=== PATIENT | male | born 1960 | race Caucasian/White ===

== ENCOUNTER 2019-10-27 19:16 | Emergency (ER) | payer BC, OTHER ==
[2019-10-27] MEDS ORDERED: Sodium Chloride 0.9% 2.5 ML Syringe FLUSH PRN (19:51)
[2019-10-27] MEDS ORDERED: Sodium Chloride 0.9% 1,000 ML IV ONE ×2 (19:51→21:02)
[2019-10-27] MEDS ORDERED: Sodium Chloride 0.9% 10 ML Syringe FLUSH PRN (19:51)
[2019-10-27] MEDS ORDERED: Ketorolac 15 MG/ML SDV IVPUSH ONE (19:51)
[2019-10-27 20:15] LABS: CARBON DIOXIDE,CO2 26.5 mmol/L (21.0-32.0)
--- NOTE | 2019-10-27 20:24 | EDM.PDOC ---
ED HPI GENERAL MEDICAL PROBLEM - General Chief Complaint: Genitourinary Problem Stated Complaint: POSSIBLE KIDNEY STONE Time Seen by Provider: 10/27/19 19:29 - History of Present Illness INITIAL COMMENTS - FREE TEXT/NARRATIVE: History of present illness: 51-year-old male presenting with left flank pain since 8:30 AM Friday, 2 days ago. At that time he started to have left flank pain and nausea and vomited 3 times. Since then he has had a decreased appetite. Pain is located primarily in the high left flank, CVA area. He reports very similar character to prior renal stones he had in the past. He suspected it was kidney stone and therefore has been drinking lots of fluid since the onset of the pain, however he reports that increased fluid intake has continued to worsen the pain. He has not had a bowel movement in the last 2 days. Review of systems: As per history of present illness and below otherwise all systems reviewed and negative. Past medical history: As per history of present illness and as reviewed below otherwise noncontributory. Renal stones Surgical history: As per history of present illness and as reviewed below otherwise noncontributory. Social history: No reported history of drug or alcohol abuse. Family history: As per history of present illness and as reviewed below otherwise noncontributory. Physical exam: GEN: no acute distress, well appearing HEENT: Atraumatic, normocephalic, mucous membranes moist, Neck: supple Lungs: No respiratory distress. Heart: RRR Abdomen: Soft, nondistended, very mild left lower quadrant tenderness, no rebound or guarding, remainder of quadrants are nontender. Back: Mild high left CVA tenderness Extremities: Atraumatic. Neurovascularly intact. Neuro: Awake, alert, oriented. Neuro Exam nonfocal. Skin: warm, dry, no lesions Diagnostics: Labs, CT scan, UA Therapeutics: Toradol, IV fluids MDM: Impression: [] Plan: [] Definitive disposition and diagnosis as appropriate pending reevaluation and review of above. left flank Pain Score (Numeric/FACES): 6 - Related Data Allergies Allergy/AdvReac Type Severity Reaction Status Date / Time No Known Allergies Allergy Verified 10/27/19 19:37 Home Meds: Home Meds . [No Known Home Meds] 10/27/19 [History] Past Medical History - Past Health History Medical/Surgical History: Denies Medical/Surgical History - Past Surgical History Other Male Surgeries/Procedures: kidney stones Social & Family History - Tobacco Use Smoking Status *Q: Never Smoker - Recreational Drug Use Recreational Drug Use: No ED ROS GENERAL - Review of Systems Review Of Systems: See Below (See HPI) ED EXAM, GI/ABD - Physical Exam Exam: See Below (See HPI) Course - Vital Signs Text/Narrative:: Left flank pain. Prior history of kidney stones with similar pain. Labs today show elevated creatinine, 2.3 and prior value was 1.3. CT scan shows 3.4 mm stone at the distal ureter close to the UVJ with mild hydronephrosis. Also with gallstones, however the patient has no right-sided abdominal pain or tenderness on examination. Admit. Last Recorded V/S: Last Vital Signs Temp 98.5 F 10/27/19 19:35 Pulse 76 10/27/19 21:02 Resp 14 10/27/19 21:02 BP 126/57 L 10/27/19 21:02 Pulse Ox 96 10/27/19 21:02 - Orders/Labs/Meds Orders: Active Orders 24 hr Category Date Time Status CORONAVIRUS COVID-19 RAPID [MOLEC] Stat Lab 10/27/19 21:33 Received Sodium Chloride 0.9% [Saline Flush] Med 10/27/19 19:51 Active 10 ml FLUSH ASDIRECTED PRN Sodium Chloride 0.9% [Saline Flush] Med 10/27/19 19:51 Active 2.5 ml FLUSH ASDIRECTED PRN Saline Lock Insert [OM.PC] Stat Oth 10/27/19 19:51 Ordered Saline Lock Insert [OM.PC] Stat Oth 10/27/19 19:51 Ordered Medication Orders Sodium Chloride (Saline Flush) 10 ml FLUSH ASDIRECTED PRN PRN Reason: Keep Vein Open Sodium Chloride (Saline Flush) 2.5 ml FLUSH ASDIRECTED PRN PRN Reason: Keep Vein Open Labs: Laboratory Tests 10/27/19 10/27/19 10/27/19 Range/Units 19:45 19:45 19:45 WBC 11.30 H (4.0-11.0) K/uL RBC 5.16 (4.50-5.90) M/uL Hgb 15.6 (13.0-17.0) g/dL Hct 46.2 (38.0-50.0) % MCV 89.5 (80.0-98.0) fL MCH 30.2 (27.0-32.0) pg MCHC 33.8 (31.0-37.0) g/dL RDW Std Deviation 40.1 (28.0-62.0) fl RDW Coeff of Jayson 12 (11.0-15.0) % Plt Count 213 (150-400) K/uL MPV 10.00 (7.40-12.00) fL Neut % (Auto) 80.2 H (48.0-80.0) % Lymph % (Auto) 8.0 L (16.0-40.0) % Dare % (Auto) 11.6 (0.0-15.0) % Eos % (Auto) 0.1 (0.0-7.0) % Baso % (Auto) 0.1 (0.0-1.5) % Neut # (Auto) 9.1 H (1.4-5.7) K/uL Lymph # (Auto) 0.9 (0.6-2.4) K/uL Dare # (Auto) 1.3 H (0.0-0.8) K/uL Eos # (Auto) 0.0 (0.0-0.7) K/uL Baso # (Auto) 0.0 (0.0-0.1) K/uL Nucleated RBC % 0.0 /100WBC Nucleated RBCs # 0 K/uL Sodium 138 (136-148) mmol/L Potassium 4.0 (3.5-5.1) mmol/L Chloride 99 (98-107) mmol/L Carbon Dioxide 26.5 (21.0-32.0) mmol/L BUN 31 H (7.0-18.0) mg/dL Creatinine 2.3 H (0.8-1.3) mg/dL Est Cr Clr Drug Dosing 33.87 mL/min Estimated GFR (MDRD) 29.4 ml/min Glucose 165 H (74-106) mg/dL Calcium 9.8 (8.5-10.1) mg/dL Total Bilirubin 2.4 H (0.2-1.0) mg/dL AST 26 (15-37) IU/L ALT 39 (14-63) IU/L Alkaline Phosphatase 82 (46-116) U/L Total Protein 8.3 H (6.4-8.2) g/dL Albumin 4.5 (3.4-5.0) g/dL Globulin 3.8 (2.6-4.0) g/dL Albumin/Globulin Ratio 1.2 (0.9-1.6) Urine Color YELLOW Urine Appearance CLEAR Urine pH 6.0 (5.0-8.0) Ur Specific [place] >= 1.030 (1.001-1.035) Urine Protein 30 H (NEGATIVE) mg/dL Urine Glucose (UA) NEGATIVE (NEGATIVE) mg/dL Urine Ketones 15 H (NEGATIVE) mg/dL Urine Occult Blood NEGATIVE (NEGATIVE) Urine Nitrite NEGATIVE (NEGATIVE) Urine Bilirubin SMALL H (NEGATIVE) Urine Ictotest NEGATIVE Urine Urobilinogen 1.0 (<2.0) EU/dL Ur Leukocyte Esterase NEGATIVE (NEGATIVE) Urine RBC 0-1 (0-2/HPF) Urine WBC 0-1 (0-5/HPF) Ur Epithelial Cells RARE (NONE-FEW) Urine Bacteria RARE (NEGATIVE) Meds: Medications Generic Name Dose Route Start Last Admin Trade Name Freq PRN Reason Stop Dose Admin Sodium Chloride 10 ml 10/27/19 19:51 Saline Flush FLUSH ASDIRECTED PRN Keep Vein Open Sodium Chloride 2.5 ml 10/27/19 19:51 Saline Flush FLUSH ASDIRECTED PRN Keep Vein Open Discontinued Medications Generic Name Dose Route Start Last Admin Trade Name Feliberto PRN Reason Stop Dose Admin Sodium Chloride 1,000 mls @ 999 mls/hr 10/27/19 19:51 10/27/19 20:20 Normal Saline IV 10/27/19 20:51 999 mls/hr .Bolus ONE Administration Sodium Chloride 1,000 mls @ 999 mls/hr 10/27/19 21:02 10/27/19 21:10 Normal Saline IV 10/27/19 22:02 999 mls/hr .Bolus ONE Administration Ketorolac Tromethamine 30 mg 10/27/19 19:51 10/27/19 20:21 Toradol IVPUSH 10/27/19 19:52 30 mg ONETIME ONE Administration Tamsulosin HCl 0.4 mg 10/27/19 21:04 10/27/19 21:10 Flomax PO 10/27/19 21:05 0.4 mg ONETIME ONE Administration - Re-Assessments/Exams Free Text/Narrative Re-Assessment/Exam: 10/27/19 20:56 Reassessed the patient. He is resting comfortably and in no acute distress. He reports that his pain is improved. I discussed CT scan findings of renal stone at the UVJ and slightly elevated creatinine and recommendation for admission. Patient agrees 10/27/19 20:[address] Swenson, for possible admission who request to discuss with urology. 10/27/19 21:[address] Márquez, urologist. We discussed the patient's lab and CT scan findings, and in particular the elevated creatinine. He recommends to allow the patient to go home tonight and he will see him tomorrow in day surgery for a morning at 9 AM and will recheck his creatinine at that time. 10/27/19 21:[address] Márquez's recommendations with the patient, the patient is very comfortable with the idea of going home and would prefer to be discharged. Will give second liter of IV fluids and Flomax here. The patient's pain is currently 0 out of 10. Departure - Departure Time of Disposition: 22:12 Disposition: Home, Self-Care 01 Clinical Impression: Left ureteral stone - Discharge Information Instructions: Kidney Stones, [id number], Ureteroscopy Referrals: PCP,None [Primary Care Provider] - Ryan Márquez MD [Physician] - (Dr Márquez would like for you to come to DAY SURGERY tomorrow at 9am, with an empty stomach from midnight tonight. Please be on time. He will recheck your creatinine at that time and determine plan of care for your kidney stone.) Forms: ED Department Discharge Additional Instructions: You may take ibuprofen as needed every 8 hours for your pain. Please be sure to drink plenty of fluids. As we discussed, Dr. Márquez is planning to evaluate you tomorrow and possibly do ureteroscopy and stone removal. Please present to day surgery at 9 AM. Please be sure to not eat or drink anything after midnight tonight. Return to the ER if any worsening symptoms or if pain not well controlled, or if you develop a fever. The following information is given to patients seen in the emergency department who are being discharged to home. This information is to outline your options for follow-up care. We provide all patients seen in our emergency department with a follow-up referral. The need for follow-up, as well as the timing and circumstances, are variable depending upon the specifics of your emergency department visit. If you don't have a primary care physician on staff, we will provide you with a referral. We always advise you to contact your personal physician following an emergency department visit to inform them of the circumstance of the visit and for follow-up with them and/or the need for any referrals to a consulting specialist. The emergency department will also refer you to a specialist when appropriate. This referral assures that you have the opportunity for follow-up care with a specialist. All of these measure are taken in an effort to provide you with optimal care, which includes your follow-up. Under all circumstances we always encourage you to contact your private physician who remains a resource for coordinating your care. When calling for follow-up care, please make the office aware that this follow-up is from your re cent emergency room visit. If for any reason you are refused follow-up, please contact the [facility] Emergency Department at and asked to speak to the emergency department charge nurse. Sepsis Event Note (ED) - Evaluation Sepsis Screening Result: No Definite Risk - Focused Exam Vital Signs: Vital Signs Temp Pulse Resp BP Pulse Ox 10/27/19 21:02 76 14 126/57 L 96 10/27/19 19:35 98.5 F 91 17 148/86 H 96 - My Orders Last 24 Hours: My Active Orders 10/27/19 19:51 Sodium Chloride 0.9% [Saline Flush] 10 ml FLUSH ASDIRECTED PRN Sodium Chloride 0.9% [Saline Flush] 2.5 ml FLUSH ASDIRECTED PRN Saline Lock Insert [OM.PC] Stat Saline Lock Insert [OM.PC] Stat 10/27/19 21:33 CORONAVIRUS COVID-19 RAPID [MOLEC] Stat - Assessment/Plan Last 24 Hours: My Active Orders 10/27/19 19:51 Sodium Chloride 0.9% [Saline Flush] 10 ml FLUSH ASDIRECTED PRN Sodium Chloride 0.9% [Saline Flush] 2.5 ml FLUSH ASDIRECTED PRN Saline Lock Insert [OM.PC] Stat Saline Lock Insert [OM.PC] Stat 10/27/19 21:33 CORONAVIRUS COVID-19 RAPID [MOLEC] Stat
--- NOTE | 2019-10-27 20:29 | CT ---
CT abdomen and pelvis Technique: Multiple axial sections were obtained from above the dome of the diaphragm inferiorly through the pubic symphysis. Intravenous and oral contrast not utilized. Study has been performed as a ureteral stone protocol. Findings: Left ureter is mildly prominent down to the UVJ. Small obstructing stone is noted within the distal left ureter near the UVJ measuring approximately 3.4 mm. No other abnormal calcifications are seen within the ureters or within the kidneys. Other findings: Visualized lung bases show nothing acute. Liver contains no focal abnormality. Multiple large calcified gallstones are seen within the gallbladder. Spleen appears within normal limits. Adrenal glands show no nodule. Pancreas shows no abnormality. Aorta shows no aneurysm with atherosclerotic calcification being seen. No retroperitoneal adenopathy or mesenteric abnormalities are seen. Appendix is seen which is normal. No pelvic mass or adenopathy is seen. Small fat-containing left inguinal hernia is noted. No free fluid or inflammatory change is appreciated. Impression: 1. 3.4 mm obstructing stone within the distal left ureter located near the UVJ. 2. Other incidental finding as noted above. Diagnostic code #3 This report was dictated in MDT
[2019-10-27] MEDS ORDERED: Tamsulosin 0.4 MG Cap.ER PO ONE (21:04)
== END 2019-10-27 22:31 | disposition home or self-care (01) ==
LOC: MW.ED 19:16
DX: N20.1 Calculus of ureter (principal); Z20.828 Contact with and (suspected) exposure to other viral communicable diseases
CPT/HCPCS: 36415; 74176; 80053; 81001; 85025; 87635; 96361; 96374; 99284; A9270; J1885; J7030; U0002

== ENCOUNTER 2019-10-28 09:38 | Day surgery (SDC) | payer BC ==
[~2019-10-28 09:38] MED LIST: Lactated Ringers 1,000 ML IV SCH
--- NOTE | 2019-10-28 10:09 | PCM.PREANE ---
Preanesthetic Assessment - Anesthesia/Transfusion/Family Hx Anesthesia History: No Prior Anesthesia Family History of Anesthesia Reaction: No Transfusion History: No Prior Transfusion(s) - Review of Systems General: No Symptoms Pulmonary: No Symptoms Cardiovascular: No Symptoms Gastrointestinal: No Symptoms Neurological: No Symptoms Other: Reports: None - Physical Assessment NPO Status Date: 10/27/19 Height: 5 ft 10 in Weight: 77.111 kg ASA Class: 2 Mental Status: Alert & Oriented x3 Airway Class: Mallampati = 2 Dentition: Reports: Normal Dentition ROM/Head Extension: Full Lungs: Clear to Auscultation, Normal Respiratory Effort Cardiovascular: Regular Rate, Regular Rhythm - Allergies Allergies/Adverse Reactions: Allergies Allergy/AdvReac Type Severity Reaction Status Date / Time No Known Allergies Allergy Verified 10/28/19 08:04 - Blood Blood Available: No - Anesthesia Plan Pre-Op Medication Ordered: None - Acknowledgements Anesthesia Type Planned: General Anesthesia Pt an Appropriate Candidate for the Planned Anesthesia: Yes Alternatives and Risks of Anesthesia Discussed w Pt/Guardian: Yes Pt/Guardian Understands and Agrees with Anesthesia Plan: Yes Additional Comments: PMH: elevated creatanine prob secondary to ureteral obstruction, cr=2.3 PLAN: ga/lma PreAnesthesia Questionnaire - Past Health History Medical/Surgical History: Denies Medical/Surgical History HEENT History: Reports: Other (See Below) Other HEENT History: reading glasses Genitourinary History: Reports: Renal Calculus Endocrine/Metabolic History: Reports: Other (See Below) Other Endocrine/Metabolic History: "glucose was elevated in the ER last night" "165" - Past Surgical History Head Surgeries/Procedures: Reports: None Other Male Surgeries/Procedures: kidney stones - SUBSTANCE USE Smoking Status *Q: Never Smoker - HOME MEDS Home Medications: Home Meds Aspirin 1 - 2 tab PO ASDIRECTED PRN 10/28/19 [History] - CURRENT (IN HOUSE) MEDS Current Meds: Current Medications Lactated Ringer's (Ringers, Lactated) 1,000 mls @ 100 mls/hr IV ASDIRECTED [facility]
[2019-10-28] MEDS ORDERED: Dexamethasone 4 MG/ML 5 ML MDV ONE (10:21)
[2019-10-28] MEDS ORDERED: Propofol 200 MG/20 ML SDV ONE (10:21)
[2019-10-28] MEDS ORDERED: Lidocaine 2% 100 MG/5 ML Syringe ONE (10:21)
[2019-10-28] MEDS ORDERED: Midazolam 1 MG/ML 2 ML SDV ONE (10:21)
[2019-10-28] MEDS ORDERED: Ondansetron 4 MG/2 ML SDV ONE (10:21)
[2019-10-28] MEDS ORDERED: fentaNYL 100 MCG/2 ML SDV IVPUSH PRN (10:25)
[2019-10-28] MEDS ORDERED: Iopamidol 200-M 10 ML vial ITHECAL ONE (10:54)
[2019-10-28] MEDS ORDERED: Ketorolac 30 MG/ML SDV ONE (11:41)
--- NOTE | 2019-10-28 12:55 | PCM48HPAN ---
Post Anesthesia Note - EVALUATION WITHIN 48HRS OF ANESTHETIC Vital Signs in Normal Range: Yes Patient Participated in Evaluation: Yes Respiratory Function Stable: Yes Airway Patent: Yes Cardiovascular Function Stable: Yes Hydration Status Stable: Yes Pain Control Satisfactory: Yes (Some soreness) Nausea and Vomiting Control Satisfactory: Yes Mental Status Recovered: Yes Vital Signs: Last Vital Signs Temp 34.4 C L 10/28/19 12:21 Pulse 59 L 10/28/19 12:44 Resp 14 10/28/19 12:44 BP 135/75 10/28/19 12:44 Pulse Ox 100 10/28/19 12:44 - COMMENTS/OBSERVATIONS Free Text/Narrative:: Ready for discharge.
--- NOTE | 2019-10-28 12:55 | PCM.POSTAN ---
POST ANESTHESIA ASSESSMENT - MENTAL STATUS Mental Status: Alert - VITAL SIGNS Vital Signs: Last Vital Signs Temp 34.4 C L 10/28/19 12:21 Pulse 59 L 10/28/19 12:44 Resp 14 10/28/19 12:44 BP 135/75 10/28/19 12:44 Pulse Ox 100 10/28/19 12:44 - RESPIRATORY Respiratory Status: Respiratory Rate WNL - CARDIOVASCULAR CV Status: Pulse Rate WNL - GASTROINTESTINAL GI Status: No Symptoms - POST OP HYDRATION Hydration Status: Adequate & Stable - OBSERVATIONS Free Text/Narrative:: Doing well
--- NOTE | 2019-10-28 13:40 | OR ---
SURGEON: Ryan Márquez M.D. DATE OF PROCEDURE: 10/28/2019 PREOPERATIVE DIAGNOSIS: Left lower ureteral stone with obstruction and renal failure. POSTOPERATIVE DIAGNOSIS: Left lower ureteral stone with obstruction and renal failure. OPERATION: Cystoscopy, left ureteroscopy, and stone removal. DESCRIPTION OF PROCEDURE: The patient was given general anesthesia. He was in dorsal lithotomy position, prepped and draped in sterile drapes. Cystourethroscopy was done. No significant prostatic enlargement or obstruction. The inside of the bladder was normal. A Glidewire was advanced in the left ureter alongside the stone all the way up into the renal pelvis. Lower ureter was then dilated using the UroMax II balloon dilator to approximately 15-[place]. The rigid ureteroscope was then advanced in the left lower ureter and the stone was removed. Inspection of the ureter all the way beyond the mid ureter showed no additional stones. With that done, the procedure was terminated, and the patient was moved to recovery room after the Glidewire was removed and after the bladder was emptied. KIKE / NITISH /[id number]
--- NOTE | 2019-10-28 14:02 | CONS ---
DATE OF CONSULTATION: 10/28/2019 DATE OF : 1960 PRIMARY CARE PHYSICIAN: None PCP HISTORY OF PRESENT ILLNESS: A 59-year-old. He presented to emergency room yesterday with sudden onset of left flank pain. Apparently, he has had that for about 2 days prior to presentation. His UA showed microscopic hematuria. No pyuria. His creatinine was 2.3. He had a CT scan that showed 3.5 mm left lower ureteral stone. MEDICAL HISTORY: He had history of urinary stones in the past. His kidneys are now clean. He usually passed the stones on his own. SURGICAL HISTORY: Negative. MEDICATIONS: Takes no cardiac medications. No history of cardiac problems. DIAGNOSTIC STUDIES: I reviewed his CT scan. He does have a 3 mm left ureteral stone with mild to moderate hydronephrosis and hydroureter. PHYSICAL EXAMINATION: GENERAL: He is alert, he is oriented. HEART: Normal sinus rhythm. LUNGS: Clear. ABDOMEN: Negative. No abdominal masses. Mild tenderness over the left side. No hernias. GENITOURINARY: External genitalia normal. PLAN: Left ureteroscopy, stone removal. KIKE / NITISH /[id number]
--- NOTE | 2019-10-28 16:06 | CR ---
Abdomen: 5 fluoroscopic spot views were obtained centered to the left abdomen. Study shows left ureteral guidewire in place. Ureteroscope is also present. Fluoroscopy time is given a 6.6 seconds. Impression: 1. Procedural study as noted above.
== END 2019-10-28 12:57 | disposition home or self-care (01) ==
LOC: MW.SDS 09:38
PROVIDERS: ATTEND Urology
DX: N20.1 Calculus of ureter (principal); N19 Unspecified kidney failure; Z87.442 Personal history of urinary calculi
CPT/HCPCS: 52352; 76000; C1769; J0690; J1100; J1885; J2001; J2250; J2405; J2704; J7120; Q9966; 88300

== ENCOUNTER 2021-01-09 07:53 | Emergency (ER) | payer BC ==
[2021-01-09] MEDS ORDERED: Ketorolac 30 MG/ML SDV IVPUSH ONE (08:53)
[2021-01-09] MEDS ORDERED: Famotidine 20 MG/2 ML SDV IVPUSH ONE (08:53)
--- NOTE | 2021-01-09 08:56 | EDM.PDOC ---
ED HPI GENERAL MEDICAL PROBLEM - General Chief Complaint: Abdominal Pain Stated Complaint: ABDOMINAL PAIN Time Seen by Provider: 01/09/21 08:42 Source of Information: Reports: Patient History Limitations: Reports: No Limitations - History of Present Illness INITIAL COMMENTS - FREE TEXT/NARRATIVE: Patient is a 60-year-old male who presents today for due to diffuse abdominal pain. Patient says his pain a couple times a year on average about every 60 days he said he keeps a journal of it. He does not notice anything makes it come. Says the pain is diffuse in nature does not radiate not made better or worse with any events he still able to tolerate p.o. has no nausea vomiting or diarrhea. Says he had this pain before and was a kidney stone but otherwise they have not been able to locate the pain. Patient he does drink alcohol only on occasions. Middle Abdomen Pain Score (Numeric/FACES): 7 - Related Data Allergies Allergy/AdvReac Type Severity Reaction Status Date / Time No Known Allergies Allergy Verified 01/09/21 08:38 Past Medical History - Past Health History Medical/Surgical History: Denies Medical/Surgical History HEENT History: Reports: Other (See Below) Other HEENT History: reading glasses Genitourinary History: Reports: Renal Calculus Endocrine/Metabolic History: Reports: Other (See Below) Other Endocrine/Metabolic History: "glucose was elevated in the ER last night" "165" - Past Surgical History Head Surgeries/Procedures: Reports: None Other Male Surgeries/Procedures: kidney stones Social & Family History - Family History Family Medical History: No Pertinent Family History - Tobacco Use Tobacco Use Status *Q: Never Tobacco User - Recreational Drug Use Recreational Drug Use: No ED ROS GENERAL - Review of Systems Review Of Systems: See Below Constitutional: Reports: No Symptoms HEENT: Reports: No Symptoms Respiratory: Reports: No Symptoms Cardiovascular: Reports: No Symptoms Endocrine: Reports: No Symptoms GI/Abdominal: Reports: Abdominal Pain : Reports: No Symptoms Musculoskeletal: Reports: No Symptoms Skin: Reports: No Symptoms Neurological: Reports: No Symptoms Psychiatric: Reports: No Symptoms Hematologic/Lymphatic: Reports: No Symptoms Immunologic: Reports: No Symptoms ED EXAM, GI/ABD - Physical Exam Exam: See Below Exam Limited By: No Limitations General Appearance: Alert, WD/WN, No Apparent Distress Eyes: Bilateral: EOMI Neck: Normal Inspection, Supple, Non-Tender Respiratory/Chest: No Respiratory Distress, Lungs Clear, Normal Breath Sounds Cardiovascular: Normal Peripheral Pulses, Regular Rate, Rhythm, No Edema GI/Abdominal Exam: Normal Bowel Sounds, Soft, Non-Tender Extremities: Normal Inspection, Normal Range of Motion Neurological: Alert, Oriented, CN II-XII Intact, Normal Cognition, Normal Gait #1 Interpretation EKG Date: 01/09/21 Time: 09:00 Rhythm: Other (sinus renard) Rate (Beats/Min): 49 ST-T: Normal Course - Vital Signs Last Recorded V/S: Last Vital Signs Temp 97.5 F 01/09/21 08:38 Pulse 63 01/09/21 13:06 Resp 16 01/09/21 08:38 BP 133/65 01/09/21 13:06 Pulse Ox 98 01/09/21 13:06 - Orders/Labs/Meds Labs: Laboratory Tests 01/09/21 01/09/21 01/09/21 Range/Units 08:43 08:43 10:25 WBC 8.59 (4.0-11.0) K/uL RBC 4.75 (4.50-5.90) M/uL Hgb 14.4 (13.0-17.0) g/dL Hct 41.5 (38.0-50.0) % MCV 87.4 (80.0-98.0) fL MCH 30.3 (27.0-32.0) pg MCHC 34.7 (31.0-37.0) g/dL RDW Std Deviation 38.8 (28.0-62.0) fl RDW Coeff of Jayson 12 (11.0-15.0) % Plt Count 218 (150-400) K/uL MPV 10.20 (7.40-12.00) fL Neut % (Auto) 87.5 H (48.0-80.0) % Lymph % (Auto) 6.6 L (16.0-40.0) % Mercer % (Auto) 5.8 (0.0-15.0) % Eos % (Auto) 0.0 (0.0-7.0) % Baso % (Auto) 0.1 (0.0-1.5) % Neut # (Auto) 7.5 H (1.4-5.7) K/uL Lymph # (Auto) 0.6 (0.6-2.4) K/uL Mercer # (Auto) 0.5 (0.0-0.8) K/uL Eos # (Auto) 0.0 (0.0-0.7) K/uL Baso # (Auto) 0.0 (0.0-0.1) K/uL Nucleated RBC % 0.0 /100WBC Nucleated RBCs # 0 K/uL Sodium 139 (136-148) mmol/L Potassium 4.4 (3.5-5.1) mmol/L Chloride 103 (98-107) mmol/L Carbon Dioxide 28.6 (21.0-32.0) mmol/L BUN 16 (7.0-18.0) mg/dL Creatinine 1.1 (0.8-1.3) mg/dL Est Cr Clr Drug Dosing 69.95 mL/min Estimated GFR (MDRD) > 60.0 ml/min Glucose 167 H (74-106) mg/dL Calcium 9.3 (8.5-10.1) mg/dL Phosphorus 2.3 L (2.6-4.7) mg/dL Magnesium 2.3 (1.8-2.4) mg/dL Total Bilirubin 0.8 (0.2-1.0) mg/dL AST 20 (15-37) IU/L ALT 42 (14-63) IU/L Alkaline Phosphatase 66 (46-116) U/L Troponin I < 0.050 (0.000-0.056) ng/mL Total Protein 7.6 (6.4-8.2) g/dL Albumin 4.2 (3.4-5.0) g/dL Globulin 3.4 (2.6-4.0) g/dL Albumin/Globulin Ratio 1.2 (0.9-1.6) Lipase 98 (73-393) U/L Urine Color YELLOW Urine Appearance CLEAR Urine pH 8.5 H (5.0-8.0) Ur Specific [place] 1.015 (1.001-1.035) Urine Protein NEGATIVE (NEGATIVE) mg/dL Urine Glucose (UA) NEGATIVE (NEGATIVE) mg/dL Urine Ketones 15 H (NEGATIVE) mg/dL Urine Occult Blood NEGATIVE (NEGATIVE) Urine Nitrite NEGATIVE (NEGATIVE) Urine Bilirubin NEGATIVE (NEGATIVE) Urine Urobilinogen 0.2 (<2.0) EU/dL Ur Leukocyte Esterase NEGATIVE (NEGATIVE) Urine Opiates Screen (NEGATIVE) Ur Oxycodone Screen (NEGATIVE) Urine Methadone Screen (NEGATIVE) Ur Barbiturates Screen (NEGATIVE) Ur Phencyclidine Scrn (NEGATIVE) Ur Amphetamine Screen (NEGATIVE) U Methamphetamines Scrn (NEGATIVE) U Benzodiazepines Scrn (NEGATIVE) U Cocaine Metab Screen (NEGATIVE) U Marijuana (THC) Screen (NEGATIVE) 01/09/21 Range/Units 10:25 WBC (4.0-11.0) K/uL RBC (4.50-5.90) M/uL Hgb (13.0-17.0) g/dL Hct (38.0-50.0) % MCV (80.0-98.0) fL MCH (27.0-32.0) pg MCHC (31.0-37.0) g/dL RDW Std Deviation (28.0-62.0) fl RDW Coeff of Jayson (11.0-15.0) % Plt Count (150-400) K/uL MPV (7.40-12.00) fL Neut % (Auto) (48.0-80.0) % Lymph % (Auto) (16.0-40.0) % Mercer % (Auto) (0.0-15.0) % Eos % (Auto) (0.0-7.0) % Baso % (Auto) (0.0-1.5) % Neut # (Auto) (1.4-5.7) K/uL Lymph # (Auto) (0.6-2.4) K/uL Mercer # (Auto) (0.0-0.8) K/uL Eos # (Auto) (0.0-0.7) K/uL Baso # (Auto) (0.0-0.1) K/uL Nucleated RBC % /100WBC Nucleated RBCs # K/uL Sodium (136-148) mmol/L Potassium (3.5-5.1) mmol/L Chloride (98-107) mmol/L Carbon Dioxide (21.0-32.0) mmol/L BUN (7.0-18.0) mg/dL Creatinine (0.8-1.3) mg/dL Est Cr Clr Drug Dosing mL/min Estimated GFR (MDRD) ml/min Glucose (74-106) mg/dL Calcium (8.5-10.1) mg/dL Phosphorus (2.6-4.7) mg/dL Magnesium (1.8-2.4) mg/dL Total Bilirubin (0.2-1.0) mg/dL AST (15-37) IU/L ALT (14-63) IU/L Alkaline Phosphatase (46-116) U/L Troponin I (0.000-0.056) ng/mL Total Protein (6.4-8.2) g/dL Albumin (3.4-5.0) g/dL Globulin (2.6-4.0) g/dL Albumin/Globulin Ratio (0.9-1.6) Lipase (73-393) U/L Urine Color Urine Appearance Urine pH (5.0-8.0) Ur Specific [place] (1.001-1.035) Urine Protein (NEGATIVE) mg/dL Urine Glucose (UA) (NEGATIVE) mg/dL Urine Ketones (NEGATIVE) mg/dL Urine Occult Blood (NEGATIVE) Urine Nitrite (NEGATIVE) Urine Bilirubin (NEGATIVE) Urine Urobilinogen (<2.0) EU/dL Ur Leukocyte Esterase (NEGATIVE) Urine Opiates Screen NEGATIVE (NEGATIVE) Ur Oxycodone Screen NEGATIVE (NEGATIVE) Urine Methadone Screen NEGATIVE (NEGATIVE) Ur Barbiturates Screen NEGATIVE (NEGATIVE) Ur Phencyclidine Scrn NEGATIVE (NEGATIVE) Ur Amphetamine Screen NEGATIVE (NEGATIVE) U Methamphetamines Scrn NEGATIVE (NEGATIVE) U Benzodiazepines Scrn NEGATIVE (NEGATIVE) U Cocaine Metab Screen NEGATIVE (NEGATIVE) U Marijuana (THC) Screen NEGATIVE (NEGATIVE) Meds: Medications Discontinued Medications Generic Name Dose Route Start Last Admin Trade Name Freq PRN Reason Stop Dose Admin Famotidine 20 mg 01/09/21 08:53 01/09/21 09:16 Famotidine 20 Mg/2 Ml Sdv IVPUSH 01/09/21 08:54 20 mg ONETIME ONE Administration Ketorolac Tromethamine 30 mg 01/09/21 08:53 01/09/21 09:16 Ketorolac 30 Mg/Ml Sdv IVPUSH 01/09/21 08:54 30 mg ONETIME ONE Administration - Re-Assessments/Exams Free Text/Narrative Re-Assessment/Exam: 01/09/21 13:11 Patient pain is controlled patient tolerating p.o. still looks well. Patient CT scan shows possible Crohn's disease will have patient follow-up outpatient with GI or surgery for further work-up. Departure - Departure Time of Disposition: 13:11 Disposition: Home, Self-Care 01 Condition: Good Clinical Impression: Abdominal pain - Discharge Information *PRESCRIPTION DRUG MONITORING PROGRAM REVIEWED*: Not Applicable *COPY OF PRESCRIPTION DRUG MONITORING REPORT IN PATIENT [place]: Not Applicable Instructions: Abdominal Pain, Adult Referrals: PCP,None [Primary Care Provider] - Forms: ED Department Discharge Additional Instructions: The following information is given to patients seen in the emergency department who are being discharged to home. This information is to outline your options for follow-up care. We provide all patients seen in our emergency department with a follow-up referral. The need for follow-up, as well as the timing and circumstances, are variable depending upon the specifics of your emergency department visit. If you don't have a primary care physician on staff, we will provide you with a referral. We always advise you to contact your personal physician following an e mergency department visit to inform them of the circumstance of the visit and for follow-up with them and/or the need for any referrals to a consulting specialist. The emergency department will also refer you to a specialist when appropriate. This referral assures that you have the opportunity for follow-up care with a specialist. All of these measure are taken in an effort to provide you with op timal care, which includes your follow-up. Under all circumstances we always encourage you to contact your private physician who remains a resource for coordinating your care. When calling for follow-up care, please make the office aware that this follow-up is from your recent emergency room visit. If for any reason you are refused follow-up, please contact the [facility] Emergency Department at and asked to speak to the emergency department charge nurse. Please follow up with your primary care physician. If you do not have a primary care physician, see below: [facility] [address] [place] [id number] [facility] [address] [place] [address] [facility] Professional [facility] [address] [place] [address], [address] [place] [address] You are seen today for abdominal pain. We did a CAT scan the CAT scan again showed the stones in your gallbladder which I am not sure of the cause of your pain which also have some inflammatory changes of the small bowels which the CT scan is saying could be possibly related to Crohn's disease. We will like for you to follow-up with a gastroenteritis or general surgery to follow-up for more work-up for this possible diagnosis. If you have any other concerning signs symptoms please return to ED. Sepsis Event Note (ED) - Evaluation Sepsis Screening Result: No Definite Risk - Focused Exam Vital Signs: Vital Signs Temp Pulse Resp BP Pulse Ox 01/09/21 13:06 63 133/65 98 01/09/21 08:38 97.5 F 54 L 16 152/69 H 99 - Assessment/Plan Plan: Patient is a 60-year-old male presents today for diffuse abdominal pain. Patient has no abdominal tenderness on exam. Patient has his pain recurrently. We will obtain basic labs likely imaging and give pain control.
[2021-01-09 09:35] LABS: BLOOD UREA NITROGEN,BUN 16 mg/dL (7.0-18.0); CARBON DIOXIDE,CO2 28.6 mmol/L (21.0-32.0); CHLORIDE,CL 103 mmol/L (98-107); GLUCOSE RANDOM 167 mg/dL (74-106); LIPASE 98 U/L (73-393); POTASSIUM,K 4.4 mmol/L (3.5-5.1); SODIUM,NA 139 mmol/L (136-148)
--- NOTE | 2021-01-09 13:07 | CT ---
INDICATION: Diffuse abdominal pain. TECHNIQUE: Volumetric helical scanning of the abdomen and pelvis was performed with 100 cc of Isovue 370 contrast material IV. Coronal and sagittal reconstructions were obtained. COMPARISON: Abdomen/pelvis CT of 10/27/2019. FINDINGS: On images [id number] of series 201, 2 segments of mild circumferential wall thickening and hyperenhancement are demonstrated along the distal ileum and suggest inflammatory bowel disease. Both of these segments are within 15 cm of the ileocecal valve. There is no obvious mesenteric edema. No free fluid or free air is demonstrated. The bowel is otherwise unremarkable. A normal appendix is noted. The gallbladder is hydropic and contains a number of large stones. No gallbladder wall thickening or pericholecystic edema/fluid is evident. No bile duct dilation is evident. Fatty change is demonstrated in the liver. The liver is normal in size and shape. The spleen, adrenal glands, kidneys and pancreas are unremarkable. No lymphadenopathy is noted. The prostate is borderline enlarged. The lung bases are clear, and the heart size is normal. IMPRESSION: 1. Two segments of suspected inflammatory change along the distal ileum within 15 cm of the ileocecal valve. Question Crohn`s disease. MR enterography recommended. 2. Hydropic gallbladder containing a number of large stones. No gallbladder wall thickening or pericholecystic edema/fluid. 3. Fatty liver. 4. Borderline prostate enlargement. Please note that all CT scans at this facility use dose modulation, iterative reconstruction, and/or weight-based dosing when appropriate to reduce radiation dose to as low as reasonably achievable. Dictated by Gavino Presley MD @ 01/09/2021 1:07:17 PM (Electronically Signed)
[2021-01-09] MEDS ORDERED: Iopamidol 755 MG/ML 500 ML Multipack Bottle IVPUSH STA (14:14)
== END 2021-01-09 13:31 | disposition home or self-care (01) ==
LOC: MW.ED 07:53
DX: R10.84 Generalized abdominal pain (principal)
CPT/HCPCS: 36415; 74177; 80053; 80305; 81003; 83690; 83735; 84100; 84484; 85025; 93005; 96374; 96375; 99284; J1885; J3490; Q9967

== ENCOUNTER 2021-05-16 07:28 | Day surgery (SDC) | payer BC ==
[2021-05-16] MEDS ORDERED: Octyl 2-Cyanoacrylate 1 Tube ONE ×2 (07:30→09:13)
[2021-05-16] MEDS ORDERED: Bupivacaine 0.5% 30 ML SDV ONE (07:30)
[2021-05-16] MEDS ORDERED: Dexmedetomidine 200 MCG/2 ML SDV ONE (07:45)
[2021-05-16] MEDS ORDERED: Lidocaine 2% 5 ML SDV ONE ×2 (07:45→09:52)
[2021-05-16] MEDS ORDERED: Propofol 200 MG/20 ML SDV ONE (07:46)
[2021-05-16] MEDS ORDERED: Ketamine 500 mg/10 ML MDV ONE (07:46)
[2021-05-16] MEDS ORDERED: Ketorolac 30 MG/ML SDV ONE (07:46)
[2021-05-16] MEDS ORDERED: Midazolam 1 MG/ML 2 ML SDV ONE (07:47)
[2021-05-16] MEDS ORDERED: Dexamethasone 4 MG/ML 5 ML MDV ONE (07:48)
[2021-05-16] MEDS ORDERED: Ondansetron 4 MG/2 ML SDV ONE (07:48)
[2021-05-16] MEDS ORDERED: HYDROmorphone 1 MG/ML Syringe IVPUSH PRN (08:18)
[2021-05-16] MEDS ORDERED: Albuterol 0.083% 2.5 MG/3 ML Neb Soln NEB PRN (08:18)
[2021-05-16] MEDS ORDERED: Metoclopramide 10 MG/2 ML SDV IVPUSH PRN (08:18)
[2021-05-16] MEDS ORDERED: fentaNYL 100 MCG/2 ML SDV IVPUSH PRN (08:18)
[2021-05-16] MEDS ORDERED: Naloxone 0.4 MG/ML SDV IVPUSH PRN (08:18)
[2021-05-16] MEDS ORDERED: Ondansetron 4 MG/2 ML SDV IVPUSH PRN (08:18)
[2021-05-16] MEDS ORDERED: Pregabalin 75 MG Cap ONE (08:25)
[2021-05-16] MEDS ORDERED: Water For Injection, Sterile 20 ML ONE (08:34)
[2021-05-16] MEDS ORDERED: Indocyanine Green 25 MG SDV ONE (08:41)
[2021-05-16] MEDS ORDERED: Pregabalin 75 MG Cap PO SCH ×2 (08:45→11:30)
[2021-05-16] MEDS ORDERED: Acetaminophen 1,000 MG in Premix Bag 1 BAG IV SCH ×2 (08:45→11:30)
[2021-05-16] MEDS ORDERED: Lactated Ringers 1,000 ML IV SCH ×2 (08:45→11:30)
[2021-05-16] MEDS ORDERED: cefOXitin 0 ML ONE (08:47)
[2021-05-16] MEDS ORDERED: cefOXitin 2 GM in Premix Bag 1 BAG IV SCH (11:30)
== END 2021-05-16 14:25 | disposition home or self-care (01) ==
LOC: MW.SDS 07:28
PROVIDERS: ATTEND Surgery
DX: K80.10 Calculus of gallbladder with chronic cholecystitis without obstruction (principal); K82.8 Other specified diseases of gallbladder; K66.9 Disorder of peritoneum, unspecified; F41.9 Anxiety disorder, unspecified; R74.01 Elevation of levels of liver transaminase levels; Z98.890 Other specified postprocedural states; Z87.891 Personal history of nicotine dependence
CPT/HCPCS: 47562; A9270; J0694; J1100; J1885; J2250; J2704; J3490; J7120; 00790; J2405